=== PATIENT | female | born 1995 | race Caucasian/White ===

== ENCOUNTER 2017-11-02 20:31 | Emergency (ER) | payer OTHER ==
[2017-11-02 20:48] VITALS: BP 149/81
--- NOTE | 2017-11-02 21:39 | EDPHY ---
H & P Time Seen by Provider: 11/02/17 21:21 HPI/ROS: CHIEF COMPLAINT: Medication request HISTORY OF PRESENT ILLNESS: 22-year-old female with diabetes presents requesting Humalog rx. She uses an insulin pump. She is traveling and forgot to have her Humalog refilled prior to her travels. She has a small amount of Humalog left, which will be enough for tonight and tomorrow am. No recent illness and no other c/o. Past Medical/Surgical History: IDDM Smoking Status: Never smoked Physical Exam: General Appearance: Alert, pleasant Eyes: Normal inspection ENT, Mouth: Mucous membranes moist Neck: Normal inspection Respiratory: Normal respiratory rate Cardiovascular: Regular rate and rhythm Neurological: A&O, nonfocal exam Skin: Warm and dry Extremities: Normal inspection Psychiatric: Mood and affect normal Constitutional: Initial Vital Signs Temperature (C) 37.1 C 11/02/17 20:46 Heart Rate 61 11/02/17 20:46 Respiratory Rate 16 11/02/17 20:46 Blood Pressure 149/81 H 11/02/17 20:46 O2 Sat (%) 97 11/02/17 20:46 O2 Delivery Mode Room Air Allergies/Adverse Reactions: gluten Allergy (Verified 11/02/17 20:48) Home Medications: Medication Instructions Recorded Humalog 11/02/17 Medical Decision Making ED Course/Re-evaluation: RX for Humalog given. Departure - Departure Disposition: Home, Routine, Self-Care Clinical Impression: PRESCRIPTION REQUEST Condition: Good Instructions: Additional Information Referrals: Zenaida Miranda MD [[facility] [place] Primary Care Provider] - As per Instructions
== END 2017-11-02 21:41 | disposition home or self-care (01) ==
DX: Z76.0 Encounter for issue of repeat prescription (principal); E11.9 Type 2 diabetes mellitus without complications; Z79.4 Long term (current) use of insulin